=== PATIENT | male | born 1990 | race Caucasian/White ===

== ENCOUNTER 2020-07-15 14:05 | Emergency (ER) | payer BC, OTHER ==
[~2020-07-15] VITALS: Ht 195.6 cm; Wt 218.8 kg
[2020-07-15 15:22] LABS: BASO % 0.2 % (0.0-1.0); EOS # 0.1 10^3/uL (0.0-0.5); EOS % 0.9 % (0.0-3.0); HEMATOCRIT 44.6 % (42.0-52.0); HEMOGLOBIN 14.5 g/dl (13.5-17.5); LYMPH # 2.2 10^3/uL (1.5-5.0); LYMPH % 16.3 % (24.0-44.0); MEAN CORPUSCULAR HEMOGLOBIN 30.3 pg (27.0-33.0); MEAN CORPUSCULAR HGB CONC 32.5 g/dl (32.0-36.5); MEAN CORPUSCULAR VOLUME 93.1 fl (80.0-96.0); MONO # 0.9 10^3/uL (0.0-0.8); MONO % 6.8 % (2.0-8.0); NEUTROPHILS # 10.2 10^3/uL (1.5-8.5); NEUTROPHILS % 75.3 % (36.0-66.0); PLATELET COUNT, AUTOMATED 361 10^3/uL (150-450); RED BLOOD COUNT 4.79 10^6/uL (4.30-6.10); WHITE BLOOD COUNT 13.5 10^3/uL (4.0-10.0)
[2020-07-15 15:43] LABS: ERYTHROCYTE SEDIMENTATION RATE 56 mm/hr (0-15)
[2020-07-15 15:52] LABS: BLOOD UREA NITROGEN 8 MG/DL (7-18); CALCIUM LEVEL 9.6 MG/DL (8.5-10.1); CARBON DIOXIDE LEVEL 26 MEQ/L (21-32); CHLORIDE LEVEL 103 MEQ/L (98-107); CREATININE FOR GFR 0.76 MG/DL (0.70-1.30); GLOMERULAR FILTRATION RATE > 60.0 (>60); GLUCOSE, FASTING 113 MG/DL (70-100); POTASSIUM SERUM 3.5 MEQ/L (3.5-5.1); SODIUM LEVEL 137 MEQ/L (136-145)
--- NOTE | 2020-07-15 16:06 | REP ---
INDICATION: left gluteal swelling r/o abscess. COMPARISON: None. TECHNIQUE: Real-time sonographic evaluation of the left gluteal soft tissues performed. FINDINGS: A complex fluid collection is seen measuring 16.1 x 5.0 x 12.8 cm. There is internal debris with septations. IMPRESSION: Large complex fluid collection in the left gluteal soft tissues most consistent with abscess given the clinical history. <Electronically signed by Arley Calvillo > 07/15/20 [id number]
[2020-07-15] MEDS ORDERED: LIDOCAINE W/EPINEPHRINE 1% 20ML VIAL SC ONE (16:40)
[2020-07-15] MEDS ORDERED: SILVER NITRATE APPLICATOR TOP ONE (17:05)
[2020-07-15] MEDS ORDERED: cefTRIAXone SOD 2 GM in D5W MINI-BAG PLUS 50 ML IV ONE (17:20)
[2020-07-15 18:19] VITALS: BP 144/84
[2020-07-15] MEDS ORDERED: AUGM875T28 PO (18:44)
== END 2020-07-15 18:48 | disposition home or self-care (01) ==
LOC: M ED 14:05
DX: L02.31 Cutaneous abscess of buttock (principal); L03.317 Cellulitis of buttock
CPT/HCPCS: 76882; 80048; 85025; 85652; 86140; 87070; 87077; 87186; 87205; 96365; 99284; J0696